=== PATIENT | female | born 1990 | race Two or more races ===

== ENCOUNTER 2025-05-17 14:15 | Inpatient (IN) | payer OTHER ==
[~2025-05-17] VITALS: Ht 162.6 cm; Wt 82.6 kg
[2025-05-19 22:15] VITALS: BP 129/79
[2025-05-19] MEDS ORDERED: MORPHINE SULFATE 4 MG/ML CARTRIDGE IV PRN (22:45)
[2025-05-19] MEDS ORDERED: RINGERS SOLUTION,LACTATED 1,000 ML IV SCH (22:45)
[2025-05-19 23:01] LABS: BASO % 0.4 % (0.1-1.2); EOS # 0.15 (0.04-0.54); EOS % 1.8 % (0.7-7.0); LYMPH # 2.29 (1.18-3.74); LYMPH % 27.4 % (19.3-53.1); MEAN PLATELET VOLUME 11.10 fl (9.4-12.4); MONO # 0.68 (0.24-0.82); MONO % 8.1 % (4.7-12.5); NEUT # 5.18 (1.56-6.13); NEUT % 61.8 % (34.0-71.1); RED CELL DISTRIBUTION WIDTH 12.3 % (11.6-14.4)
[2025-05-19 23:17] VITALS: BP 138/83
[2025-05-19 23:17] LABS: INR < 0.93
[2025-05-19 23:29] LABS: ALT/SGPT 21.0 U/L (12-78); AST/SGOT 20.0 U/L (15-37); BILIRUBIN TOTAL 0.18 mg/dL (0.3-1.2); BUN CREA RATIO 14.0 (7.0-25.0); CREATININE SERUM 0.77 mg/dL (0.55-1.02); GFR 86.33; GLOBULINA 4.0 G/DL (2.4-3.5); GLUCOSE FASTING 133.0 mg/dL (65-100); OSMOLALITY SERUM 283.0 MOSM/KG (275-295)
[2025-05-20] VITALS (11 sets, daily range): BP systolic 113–141; BP diastolic 50–87
[2025-05-20] MEDS ORDERED: OXYTOCIN 500 ML IV ONE (13:15)
[2025-05-20] MEDS ORDERED: ERYTHROMYCIN BASE OPHT 1GM EACH TUBE OP ONE (15:13)
[2025-05-20] MEDS ORDERED: OXYTOCIN 20 UNITS/1000ML RL PIGGYBAG IV ONE (15:13)
[2025-05-20] MEDS ORDERED: LIDOCAINE HCL 1% 10ML VIAL ONE (15:13)
[2025-05-20] MEDS ORDERED: CHLORHEXIDINE GLUCONATE 120 ML BOTTLE TOP ONE ×2 (15:13→18:45)
[2025-05-20] MEDS ORDERED: ACETAMINOPHEN WITH CODEINE 1 UDTAB TABLET PO PRN (17:15)
[2025-05-20] MEDS ORDERED: OXYTOCIN 1,000 ML IV SCH (17:15)
[2025-05-20] MEDS ORDERED: ERYTHROMYCIN BASE OPHT 1GM EACH TUBE OP STA (18:44)
[2025-05-20] MEDS ORDERED: LIDOCAINE HCL 1% 10ML VIAL IJ ONE (18:45)
[2025-05-21] VITALS: BP 107/70
[2025-05-21 09:26] VITALS: BP 94/63
[2025-05-21 17:00] VITALS: BP 115/76
[2025-05-22 00:05] VITALS: BP 110/77
[2025-05-22 08:00] VITALS: BP 101/66
== END 2025-05-22 11:56 | disposition home or self-care (01) | DRG 807 ==
LOC: LDR 05-19 22:32 → OB/GYN 05-20 21:32 → SURG 05-25 14:15
PROVIDERS: Obstetrics & Gynecology; ADMIT Obstetrics & Gynecology Maternal & Fetal Medicine; ATTEND Obstetrics & Gynecology Maternal & Fetal Medicine
PROC: 4A1HXCZ Monitoring of Products of Conception, Cardiac Rate, External Approach (ICD-10-PCS; 2025-05-19)
PROC: 10E0XZZ Delivery of Products of Conception, External Approach (ICD-10-PCS; principal; 2025-05-20)
PROC: 0UQG7ZZ Repair Vagina, Via Natural or Artificial Opening (ICD-10-PCS; 2025-05-20)
DX: O71.4 Obstetric high vaginal laceration alone (principal); Z37.0 Single live birth; Z3A.39 39 weeks gestation of pregnancy

== ENCOUNTER 2025-05-19 08:40 | Outpatient (CLI) | payer OTHER | END 2025-05-19 09:29 | disposition home or self-care (01) | LOC: NST 08:40 | PROVIDERS: ATTEND Obstetrics & Gynecology | DX: Z34.83 Encounter for supervision of other normal pregnancy, third trimester (principal) ==